=== PATIENT | male | born 1965 | race Caucasian/White ===

== ENCOUNTER → 2016-11-27 | Outpatient (CLI) | payer BC ==
--- NOTE | ~2016-11-27 | MR113 ---
[facility] A Service of [facility] & [facility] RADIOLOGY TEXT RESULTS PATIENT: KIRSTIE SKELTON LOCATION: [facility] : 69 UNIT #: [id number] AGE: [address]: Jean Pierre Barry MD SEX: M ORDER DR: [id number] [place] [id number] O MR#: [id number] Acc #: [id number] NAME: KIRSTIE SKELTON : 1965 SEX: M STUDY DATE/TIME: 11/27/2016 14:50 UNIT: [facility] ROOM: STUDY DESCRIPTION: MR Lumbar Wo Contrast Attending Physician: Jean Pierre Barry M.D. Referring Physician: Jean Pierre aBrry M.D. Ordering Physician: Jean Pierre Barry M.D. Primary Care Physician: Leslie Rai M.D. MRI CENTER REPORT This report is preliminary unless electronic signature is present. EXAM Lumbar spine MRI without HISTORY Increasing low back pain with grzy-tezzjde-jfuy-right lower extremity radiculopathy for 4 months. No known injury or surgery. No cancer history. TECHNIQUE MRI lumbar spine performed without contrast using routine 1.5-T wide-bore imaging technique. FINDINGS There is normal sagittal alignment. Bone marrow signal intensities unremarkable allowing for minor marrow endplate degenerative changes. Intervertebral disc desiccation at L4-L5 and L5-S1 with mild loss of intervertebral disc height at the L4-L5 level. The conus medullaris terminates at upper aspect of L1 and is normal. Small Schmorl nodes are seen. At L1-L2, there is a minor concentric disc bulge but no significant canal or foraminal impingement. At L2-L3, there is a minor concentric disc bulge and mild facet hypertrophy bilaterally but no canal stenosis or foraminal impingement. At L3-L4, there is a mild concentric disc bulge with endplate spondylosis and there is a superimposed anterior disc extrusion as well as a superimposed small left posterolateral extrusion in the foramen and extending lateral to the foramen. There is mild facet hypertrophy. There is mild mass effect on the left lateral recess, expected location left L4 root. There is moderate impingement upon the left-sided L3-L4 foramen, expected location left L3 root, and mass effect on the course of the left STS. [facility] A Service of [facility] RADIOLOGY TEXT RESULTS PATIENT: KIRSTIE SKELTON LOCATION: [facility] : 69 UNIT #: [id number] AGE: [address]: Jean Pierre Barry MD SEX: M ORDER DR: L3 root lateral to the foramen. There is mild central canal stenosis. There is mild right-side foraminal narrowing. At L4-L5, there is ykoz-ya-ekppqupu bilateral facet degenerative change with mild ligamentum flavum thickening. There is mild concentric disc bulge and combination of findings result in mild central canal stenosis with mass effect on the kqale-fdomdnb-zrry-left lateral recess, expected location L5 roots. There is mild right and nmpu-bz-gkziocob left-side foraminal narrowing. At L5-S1, there is moderate facet degenerative change bilaterally. There is a broad-based posterior disc protrusion. There is no canal stenosis. There is mild left and right foraminal narrowing. 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 IMPRESSION 1. Lumbar degenerative changes, most significant appearing radiographically at L3-L4 and L4-L5 where there is mild canal stenosis. Please see mvmyy-ph-cwfls description of foraminal impingement and mass effect upon the lateral recesses. Dictated by... Nupur Chi M.D. THIS IS AN ELECTRONICALLY VERIFIED REPORT Nupur Chi M.D. at 11/29/2016 8:57 AM SAC/pcl TD: 11/28/2016 19:54 JOB #: [id number] MRI CENTER REPORT Page 1 of 1
== END | disposition home or self-care (01) ==
LOC: SMRI 14:00
DX: M51.16 Intervertebral disc disorders with radiculopathy, lumbar region (principal); M48.06 Spinal stenosis, lumbar region
CPT/HCPCS: 72148